=== PATIENT | female | born 1990 | race Caucasian/White ===

== ENCOUNTER → 2020-07-10 | Day surgery (SDC) | payer BC ==
[~2020-07-10] MED LIST: Acetaminophen/HYDROcodone 325-5 MG Tab PO PRN; Ertapenem 1 GM in Sodium Chloride 0.9% 50 ML IV ONE; HYDROmorphone 0.5 MG/0.5 ML Syringe IVPUSH PRN; HYDROmorphone 0.5 MG/0.5 ML Syringe ONE; Lactated Ringers 1,000 ML ONE; Lidocaine 1% 6 ML ONE; Lidocaine 1% with EPINEPHrine 1:100,000 20 ML MDV ONE; Midazolam 1 MG/ML 2 ML SDV ONE; Ondansetron 4 MG/2 ML SDV ONE; Propofol 200 MG/20 ML SDV ONE; Rocuronium 50 MG/5 ML Vial ONE; Succinylcholine/Sod PF 100 MG/5 ML SYRINGE IV ONE; fentaNYL 250 MCG/5 ML SDV ONE
--- NOTE | 2020-07-10 12:26 | PCM.PREANE ---
Preanesthetic Assessment - Procedure Proposed Procedure: lap appy - Anesthesia/Transfusion/Family Hx Anesthesia History: Prior Anesthesia Without Reaction Family History of Anesthesia Reaction: No Transfusion History: No Prior Transfusion(s) - Review of Systems General: No Symptoms Pulmonary: No Symptoms Cardiovascular: No Symptoms Gastrointestinal: Abdominal Pain (couple days) Neurological: No Symptoms Other: Reports: None - Physical Assessment NPO Status Date: 07/10/20 NPO Status Time: 07:00 (wawter) Vital Signs: Last Vital Signs Temp 98.8 F 07/10/20 11:44 Pulse 90 07/10/20 11:44 Resp 20 07/10/20 11:44 BP 110/81 07/10/20 11:44 Pulse Ox 100 07/10/20 11:44 Height: 5 ft 8 in Weight: 63.503 kg ASA Class: 1 Mental Status: Alert & Oriented x3 Airway Class: Mallampati = 1 Dentition: Reports: Normal Dentition Thyro-Mental Finger Breadths: 3 Mouth Opening Finger Breadths: 3 ROM/Head Extension: Full Lungs: Clear to Auscultation, Normal Respiratory Effort Cardiovascular: Regular Rate, Regular Rhythm - Allergies Allergies/Adverse Reactions: Allergies Allergy/AdvReac Type Severity Reaction Status Date / Time No Known Allergies Allergy Verified 11/27/15 11:23 - Blood Blood Available: No - Acknowledgements Anesthesia Type Planned: General Anesthesia Pt an Appropriate Candidate for the Planned Anesthesia: Yes Alternatives and Risks of Anesthesia Discussed w Pt/Guardian: Yes Pt/Guardian Understands and Agrees with Anesthesia Plan: Yes PreAnesthesia Questionnaire - Past Health History Medical/Surgical History: Denies Medical/Surgical History Cardiovascular History: Reports: None Respiratory History: Reports: None Gastrointestinal History: Reports: None 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: Endocrine/Metabolic History: Reports: None Oncologic (Cancer) History: Reports: None - SUBSTANCE USE Tobacco Use Status *Q: Never Tobacco User Tobacco Use Within Last Twelve Months: No Second Hand Smoke Exposure: No Days Per Week of Alcohol Use: 3 Number of Drinks Per Day: 4 Total Drinks Per Week: 12 Recreational Drug Use History: No - HOME MEDS Home Medications: Home Meds Ibuprofen [Motrin] 600 mg PO Q4H PRN #0 tablet 11/29/15 [Rx] - CURRENT (IN HOUSE) MEDS Current Meds: Current Medications Ertapenem 1 gm/ Sodium (Chloride) 50 mls @ 100 mls/hr IV ONETIME ONE Stop: 07/10/20 12:37 Discontinued Medications Fentanyl (Sublimaze) Confirm Administered Dose 250 mcg .ROUTE .STK-MED ONE Stop: 07/10/20 12:18 Lidocaine HCl (Xylocaine-Mpf 1%) Confirm Administered Dose 6 mls @ as directed .ROUTE .STK-MED ONE Stop: 07/10/20 12:16 Midazolam HCl (Versed 1 Mg/Ml) Confirm Administered Dose 4 mg .ROUTE .STK-MED ONE Stop: 07/10/20 12:19 Ondansetron HCl (Zofran) Confirm Administered Dose 8 mg .ROUTE .STK-MED ONE Stop: 07/10/20 12:17
--- NOTE | 2020-07-10 12:29 | PCM.HP.2 ---
H&P History of Present Illness - General Date of Service: 07/10/20 Source of Information: Patient History Limitations: Reports: No Limitations - History of Present Illness Initial Comments - Free Text/Narative: Patient has symptoms of abdominal bloating over the past weekend. On Wednesday and Wednesday(yesterday) she started having RLQ pain, worse at 6pm. Severe episode was this morning where she could not stand up straight without RLQ pain, she had to be hunched over. Low appetite but able to tolerate diet. No fevers or chills. No history of abdominal operations. No smoking. She saw her PCP today. Labs were normal, UA normal, negative, CT showed likely acute appendicitis. Onset of Symptoms: Reports: Gradual Duration of Symptoms: Reports: Day(s): (4), Getting Worse Location: Reports: Abdomen (RLQ) Quality: Reports: Ache, Sharp Severity: Moderate Improves with: Reports: Immobilization Worsens with: Reports: Movement Associated Symptoms: Reports: No Other Symptoms Right Lower Abdomen Pain Score (Numeric/FACES): 4 - Related Data Allergies/Adverse Reactions: Allergies Allergy/AdvReac Type Severity Reaction Status Date / Time No Known Allergies Allergy Verified 11/27/15 11:23 Home Medications: Home Meds Ibuprofen [Motrin] 600 mg PO Q4H PRN #0 tablet 11/29/15 [Rx] Past Medical History - Past Health History Medical/Surgical History: Denies 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: Social & Family History - Tobacco Use Tobacco Use Status *Q: Never Tobacco User - Caffeine Use Caffeine Use: Reports: None - Recreational Drug Use Recreational Drug Use: No H&P Review of Systems - Review of Systems: Review Of Systems: See Below General: Reports: No Symptoms HEENT: Reports: No Symptoms Pulmonary: Reports: No Symptoms Cardiovascular: Reports: No Symptoms Gastrointestinal: Reports: Abdominal Pain (RLQ pain) Genitourinary: Reports: No Symptoms Musculoskeletal: Reports: No Symptoms Skin: Reports: No Symptoms Psychiatric: Reports: No Symptoms Neurological: Reports: No Symptoms Hematologic/Lymphatic: Reports: No Symptoms Immunologic: Reports: No Symptoms Exam - Exam Exam: See Below - Vital Signs Vital Signs: Last Vital Signs Temp 98.8 F 07/10/20 11:44 Pulse 90 07/10/20 11:44 Resp 20 11/18/20 11:44 BP 110/81 07/10/20 11:44 Pulse Ox 100 07/10/20 11:44 Weight: 63.503 kg - Exam General: Alert, Oriented, Cooperative Lungs: Clear to Auscultation, Normal Respiratory Effort Cardiovascular: Regular Rate, Regular Rhythm, Normal S1, Normal S2 GI/Abdominal Exam: Soft, No Organomegaly, No Distention, No Abnormal Bruit, No Mass, Pelvis Stable, Tender (RLQ) Sepsis Event Note - Evaluation Sepsis Screening Result: No Definite Risk - Focused Exam Vital Signs: Vital Signs Temp Pulse Resp BP Pulse Ox 07/10/20 11:44 98.8 F 90 20 110/81 100 Problem List Initiated/Reviewed/Updated: No Orders Last 24hrs: Active Orders 24 hr Category Date Time Status CORONAVIRUS COVID-19 RAPID [MOLEC] Routine Lab 07/10/20 12:23 Ordered Ertapenem [INVanz] 1 gm Med 07/10/20 12:08 Active Sodium Chloride 0.9% [Normal Saline] 50 ml IV ONETIME Schedule Procedure [COMM] Routine Oth 07/10/20 12:19 Ordered Medication Orders Ertapenem 1 gm/ Sodium (Chloride) 50 mls @ 100 mls/hr IV ONETIME ONE Stop: 07/10/20 12:37 Assessment/Plan Comment:: Acute appendicitis. We discussed options including antibiotics and surgery. Risk, benefits were discussed for each. Patient would like to proceed with surgery. Informed consent was obtained. We will proceed with lap appendectomy. - Mortality Measure Prognosis:: Good
--- NOTE | 2020-07-10 14:20 | PCM.POSTAN ---
POST ANESTHESIA ASSESSMENT - MENTAL STATUS Mental Status: Somnolent - VITAL SIGNS Vital Signs: Last Vital Signs Temp 98.3 F 07/10/20 14:13 Pulse 115 H 07/10/20 14:13 Resp 22 H 07/10/20 14:13 BP 123/67 07/10/20 14:13 Pulse Ox 97 07/10/20 14:13 - RESPIRATORY Respiratory Status: Respiratory Rate WNL, Airway Patent, O2 Saturation Stable - CARDIOVASCULAR CV Status: Pulse Rate WNL, Blood Pressure Stable - GASTROINTESTINAL GI Status: No Symptoms - PAIN Pain Score: 0 - POST OP HYDRATION Hydration Status: Adequate & Stable
[2020-07-10] MEDS: fentaNYL 100 MCG/2 ML SDV IVPUSH PRN ×2 (14:28→14:41)
--- NOTE | 2020-07-10 14:46 | PCM48HPAN ---
Post Anesthesia Note - EVALUATION WITHIN 48HRS OF ANESTHETIC Vital Signs in Normal Range: Yes Patient Participated in Evaluation: Yes Respiratory Function Stable: Yes Airway Patent: Yes Cardiovascular Function Stable: Yes Hydration Status Stable: Yes Pain Control Satisfactory: Yes Nausea and Vomiting Control Satisfactory: Yes Mental Status Recovered: Yes Vital Signs: Last Vital Signs Temp 98.7 F 07/10/20 14:30 Pulse 96 07/10/20 14:30 Resp 16 07/10/20 14:30 BP 109/65 07/10/20 14:30 Pulse Ox 93 L 07/10/20 14:30 - COMMENTS/OBSERVATIONS Free Text/Narrative:: Patient is ready to move to Stage 2 / Extended floor recovery
[2020-07-10 14:47] VITALS: PULSE 85
--- NOTE | 2020-07-10 14:58 | OR ---
DATE OF OPERATION: 07/10/2020 SURGEON: Flaquita Baires MD PREOPERATIVE DIAGNOSIS: Acute appendicitis. POSTOPERATIVE DIAGNOSIS: Acute appendicitis. OPERATION PERFORMED: Laparoscopic appendectomy. ESTIMATED BLOOD LOSS: 10 mL. ANESTHESIA: General endotracheal. COMPLICATIONS: None. INDICATIONS AND CONSENT: The patient is a 30-year-old female who started having some bloating 4 days ago that developed into right lower quadrant localized pain. The patient's pain worsened and decided to be seen in clinic by her PCP, who diagnosed her with acute appendicitis. The patient was sent to the ED and I saw the patient there, confirmed findings of acute appendicitis, and discussed options including antibiotics and surgery. The patient opted to proceed with surgery. Risks, benefits, and alternatives were discussed, and informed consent was obtained. DESCRIPTION OF PROCEDURE: The patient was taken to the operating room, placed in supine position and padded appropriately. Preop antibiotics consisting of Invanz were administered. SCDs were placed. The patient had voided prior to going to the OR, so no Srinivasan catheter was needed. Time-out was performed and general anesthesia was induced. Abdomen was prepped and draped in the usual sterile fashion. Then, we began by injecting 1% lidocaine with epinephrine in the infraumbilical position. Incision was made here and Veress needle was inserted. Abdomen insufflated to 15 mmHg. Then, the 12 Optiview trocar was inserted under direct visualization with laparoscope. Inspection of the abdomen was normal. There were no signs of injury. Two additional 5 mm trocars were placed, one in the left lower quadrant, another one in the suprapubic area, then we focused on the left lower quadrant. The appendix was retrocecal and was inflamed. Adhesions were divided with LigaSure Impact. It was clearly inflamed except at the base and there was a feeling of fullness within the appendix about 1 cm from the base. serosa at this site appeared normal. Once the appendix was released from surrounding tissue, the Endo JAEL stapler with a blue load was used to transect the appendix, taking a small portion of the cecum so that the entire area of the fullness can be removed. The staple lines were inspected. They were completely hemostatic. There was no bleeding or signs of injury to the bowel. The appendix was removed through the infraumbilical incision and this incision was closed at the fascial level with 0 Vicryl stitches using Irwin- Joaquina device and all incisions were then closed at the skin level with 4-0 Monocryl and then Dermabond was placed. Of note, the appendix was removed through the infraumbilical position through the EndoCatch bag. The patient tolerated the procedure well. Counts at the end of the procedure were correct x2. The patient was awakened from general anesthesia, extubated, and taken to the PACU for further recovery. The patient will be allowed to return home today with pain medication and regular diet. The patient to come in clinic in 2 weeks for postop check. MMODAL /[id number] BRUNO
[2020-07-10 15:32] VITALS: BP 117/82
== END | disposition home or self-care (01) ==
LOC: JD.ED 11:27 → JD.SDS 12:11
PROVIDERS: ATTEND Surgery
DX: K35.33 Acute appendicitis with perforation, localized peritonitis, and gangrene, with abscess (principal); D12.1 Benign neoplasm of appendix; Z01.812 Encounter for preprocedural laboratory examination; Z20.828 Contact with and (suspected) exposure to other viral communicable diseases
CPT/HCPCS: 44970; 87635; A9270; J0330; J1170; J1335; J2001; J2250; J2405; J2704; J3010; J7120; 00840; U0002